=== PATIENT | female | born 1945 | race Asian ===

== ENCOUNTER → 2016-09-14 | Outpatient (CLI) | payer MEDICARE, OTHER ==
[2015-09-04 21:50] VITALS: BP 103/48
[~2016-09-14] MED LIST: ESOM20CA PO; ESTR1TAB5 PO; GABA-585 PO; LINA290C PO; LORA1TAB PO; METO10TA81 PO; TRAM50TA PO
--- NOTE | 2016-09-14 13:51 | RAD ---
EXAM: Bilateral digital screening mammogram with 3D tomosynthesis. HISTORY: 71-year-old female presents for screening mammography. TECHNIQUE: Full field digital craniocaudal and mediolateral oblique 2D and 3D tomosynthesis images of both breasts were obtained. Computer aided detection was applied. COMPARISON: 09/13/2015 FINDINGS: Breast parenchymal density: Level B - Scattered fibroglandular densities. There is no new suspicious mass, calcification or distortion within either breast. There is stable nodularity within the medial right breast at mid depth. There are coarse benign calcifications within the right breast. IMPRESSION: BI-RADS Category 2: Benign findings. Annual mammography is recommended. PQRS compliance statement: Patient information was entered into a reminder system with a target due date in one year for the next mammogram. Note is made that dense breast parenchyma limits the sensitivity of mammography. Mammography is a sensitive method for finding small breast cancers, but it does not detect them all and is not a substitute for careful clinical examination. A negative mammogram does not negate a clinically suspicious finding and should not result in delay in biopsying a clinically suspicious abnormality. "Our facility is accredited by the [employer] Mammography [employer]."
== END | disposition home or self-care (01) ==
LOC: MAMMO 10:19
PROVIDERS: ATTEND Registered Nurse
DX: Z12.31 Encounter for screening mammogram for malignant neoplasm of breast (principal)
CPT/HCPCS: 77063; G0202; 77067

== ENCOUNTER → 2017-09-16 | Outpatient (CLI) | payer MEDICARE, OTHER ==
[2015-09-04 21:50] VITALS: BP 103/48
--- NOTE | 2017-09-16 16:09 | RAD ---
DATE: 09/16/2017 EXAM: MAMMO GLORY SCREENING BILATERAL HISTORY: Routine screening COMPARISON: 09/13/2015, 09/14/2016 This study was interpreted with the benefit of Computerized Aided Detection (CAD). The breast parenchyma is heterogeneously dense, which could reduce sensitivity of mammography. Breast parenchyma level C. FINDINGS: 2-D and 3-D tomosynthesis imaging was performed in CC and MLO projections. There is mild unchanged nodularity medially in the right breast. No new or enlarging breast densities are seen. Benign type calcification is present. No suspicious microcalcifications have developed. IMPRESSION: Stable mammograms without evidence of malignancy. BI-RADS CATEGORY: 2 BENIGN FINDING(S) RECOMMENDED FOLLOW-UP: 12M 12 MONTH FOLLOW-UP PQRS compliance statement: Patient information was entered into a reminder system with a target due date for the next mammogram. Mammography is a sensitive method for finding small breast cancers, but it does not detect them all and is not a substitute for careful clinical examination. A negative mammogram does not negate a clinically suspicious finding and should not result in delay in biopsying a clinically suspicious abnormality. "Our facility is accredited by the [employer] Mammography [employer]."
== END | disposition home or self-care (01) ==
LOC: MAMMO 12:59
PROVIDERS: ATTEND Registered Nurse
DX: Z12.31 Encounter for screening mammogram for malignant neoplasm of breast (principal)
CPT/HCPCS: 77063; 77067

== ENCOUNTER → 2018-09-19 | Outpatient (CLI) | payer MEDICARE, OTHER ==
[2015-09-04 21:50] VITALS: BP 103/48
[~2018-09-19] MED LIST changes: +LORA-254 PO; -LORA1TAB PO
--- NOTE | 2018-09-19 14:31 | RAD ---
DATE: 09/19/2018 EXAM: MAMMO GLORY SCREENING BILATERAL HISTORY: Routine screening COMPARISON: 09/16/2017 This study was interpreted with the benefit of Computerized Aided Detection (CAD). Breast Density: HETERO The breast parenchyma is heterogenously dense, which could reduce sensitivity of mammography. Breast parenchyma level C. FINDINGS: 2-D and 3-D tomosynthesis imaging was performed in CC and MLO projections. No new or enlarging breast densities are seen. There are stable microcalcifications. No suspicious microcalcifications have developed. IMPRESSION: Stable mammograms without evidence of malignancy. BI-RADS CATEGORY: 2 BENIGN FINDING(S) RECOMMENDED FOLLOW-UP: 12M 12 MONTH FOLLOW-UP PQRS compliance statement: Patient information was entered into a reminder system with a target due date for the next mammogram. Mammography is a sensitive method for finding small breast cancers, but it does not detect them all and is not a substitute for careful clinical examination. A negative mammogram does not negate a clinically suspicious finding and should not result in delay in biopsying a clinically suspicious abnormality. "Our facility is accredited by the [employer] Mammography [employer]."
== END | disposition home or self-care (01) ==
LOC: MAMMO 12:55
PROVIDERS: ATTEND Family Medicine
DX: Z12.31 Encounter for screening mammogram for malignant neoplasm of breast (principal)
CPT/HCPCS: 77063; 77067